=== PATIENT | female | born 1970 | race Caucasian/White ===

== ENCOUNTER 2018-10-06 07:44 | Observation (INO) ==
--- NOTE | 2018-09-23 15:43 | PAT Medication Instructions ---
Medication Instructions Date of Service September 23, 2018 Home Medications ibuprofen [Advil] 2 tab PO UD PRN multivitamin [Multiple Vitamins] 1 tab PO DAILY ASK your surgeon for instructions ibuprofen [Advil] 2 tab PO UD PRN DO NOT take the morning of surgery multivitamin [Multiple Vitamins] 1 tab PO DAILY Other Notes If you have any questions please call us at [phone] or [phone] or [phone] or [phone]
--- NOTE | 2018-09-24 12:02 | Anesthesiology Consultation ---
Date of Service September 24, 2018 Assessment & Plan (1) Encounter for pre-operative examination: - Check test AM DOS Chart Review Chart Review: Acceptable Risk for Surgery and Patient seen in Pre Admission Te sting Teaching & Discussion Pre-Anesthesia Teaching/Discussion Notes: Instructed NPO after midnight before surgery,except medications with 15 cc of water. Medication instructions provided according to the PAT guidelines. History Surgery Operation Date: 10/06/18 09:20 Proposed Procedures p Robotic Total Laparoscopic Hysterectomy - Rudy Castillo MD, FACOG Height/Weight Height: 5 ft 2 in Weight: 74.2 kg Allergies Allergy/AdvReac Type Severity Reaction Status Date / Time No Known Allergies Allergy Unverified 09/18/18 13:54 Medications Home Medications Medication Instructions Recorded Confirmed Last Taken ibuprofen [Advil] 2 tab PO UD PRN 09/18/18 09/18/18 Unknown multivitamin [Multiple Vitamins] 1 tab PO DAILY 09/18/18 09/18/18 Unknown Past Medical History Medical History Menorrhagia Ovarian cyst Past Family History Family History Grandmother Family history of breast cancer Other Family history of cervical cancer Past Surgical History Surgical History History of ankle surgery BONE SPUR RIGHT History of section History of laparoscopy [place] teeth removed Past Anesthesia History No Hx of Anesthesia Complications and No Family Hx of Anesthesia Complications History of PONV No Motion Sickness Screening History of Motion Sickness: No Social History Smoking Status: Never smoker Do You Dip or Chew Tobacco: No Hx Alcohol Use: Yes (RARE) Alcohol type: wine alcohol intake frequency: holidays/special occasions only Hx Substance Use: No substance use type: does not use Exercise / Class Metabolic Activity II 4-5 Yardwork/Stairs/Walk up hill Review of Systems Patient denies chest pain, shortness of breath, dyspnea on exertion, reflux, cough, wheezing, palpitations. Physical Exam Vital Signs VITALS BP 114/78 P 98 TEMP 98.5 SP02 97%RA RESP 16 PHYSICAL Full neck and c-spine range of motion. Full TMJ range of motion. TMD 4 finger breaths Mallampati Score 1 Dentition: intact Lungs: clear throughout to auscultation Cardiac: regular rate and rhythm, no murmurs noted Spine: normal Extremities: no edema Testing Laboratory Results 09/24/18 12:08 09/24/18 12:00 Blood Type A Positive 09/24/18 12:08 Antibody Screen NEGATIVE 09/24/18 12:08
[2018-09-24 12:39] LABS: Basophils # (auto) 0.04 K/uL (0-0.2); Basophils % (auto) 0.8 %; Eosinophils # (auto) 0.09 K/uL (0-0.5); Eosinophils % (auto) 1.8 %; Hematocrit (blood only) 37.6 % (37-47); Hemoglobin 12.8 g/dL (12.0-16.0); Lymphocytes # (auto) 2.02 K/uL (1.2-3.4); Lymphocytes % (auto) 40.9 %; Mean Corpuscular Volume 89.3 fL (80-100); Mean Platelet Volume 11.2 fL (7.4-10.4); Monocytes # (auto) 0.41 K/uL (0.11-0.59); Monocytes % (auto) 8.3 %; Neutrophils # (auto) 2.38 K/uL (1.4-6.5); Neutrophils % (auto) 48.2 %; Platelet Count 305 K/uL (130-400); RDW Coefficient of Variation 13.1 % (11.5-14.5); RDW Standard Deviation 42.5 fL (36.4-46.3); Red Blood Count 4.21 M/uL (4.2-5.4); White Blood Count 4.94 K/uL (4.8-10.8)
[2018-09-24 13:09] LABS: BUN Creatinine Ratio 13.7 (10-20); Calcium 9.2 mg/dl (8.5-10.1); Creatinine Clr Calc Pharmacy 85.4 ml/min; Est GFR (African American) 107.5; Est GFR (Non-African American) 92.8; Potassium 4.2 mmol/L (3.5-5.1)
[~2018-10-06 07:44] MED LIST: CEFAZOLIN 2000MG 2,000 MG/15 ML SYR IV SCH; LACTATED RINGER'S 1,000 ML IV SCH; LR 15ML/HR IV SCH
[2018-10-06] MEDS ORDERED: HYDROmorphone INJ 2 MG/ML SYR/VIAL IV PRN (08:23)
[2018-10-06] MEDS ORDERED: ATROPINE SULFATE 0.1 MG/ML 10ML SYR IV PRN (08:23)
[2018-10-06] MEDS ORDERED: ePHEDrine sulfate 50 MG/ML AMP IV PRN (08:23)
[2018-10-06] MEDS ORDERED: fentaNYL citrate 100 MCG/2 ML VIAL IV PRN (08:23)
[2018-10-06] MEDS ORDERED: PROMETHAZINE HCL 6.25 MG in SODIUM CHLORIDE 0.9% 50 ML IV PRN (08:23)
[2018-10-06] MEDS ORDERED: ONDANSETRON INJ 2 MG/ML 2 ML VIAL IV PRN ×2 (08:23→11:37)
[2018-10-06] MEDS ORDERED: LIDOCAINE HCL 2% 2 ML VIAL/AMP(20MG/ML) INFIL ONE (08:29)
[2018-10-06] MEDS ORDERED: DEXAMETHASONE SOD INJ 4 MG/ML VIAL ONE (08:29)
[2018-10-06] MEDS ORDERED: PROPOFOL IV EMULSION 10 MG/ML 20 ML VIAL IV ONE (08:29)
[2018-10-06] MEDS ORDERED: fentaNYL citrate 100 MCG/2 ML VIAL ONE (08:29)
[2018-10-06] MEDS ORDERED: ONDANSETRON INJ 2 MG/ML 2 ML VIAL ONE (08:29)
[2018-10-06] MEDS ORDERED: MIDAZOLAM HCL 1 MG/ML 2ML VIAL ONE (08:29)
--- NOTE | 2018-10-06 09:19 | History & Physical Bridge Note ---
Date of Service October 06, 2018 History & Physical Bridge Note I have examined the patient, reviewed the History & Physical and in the interval since the performance of the History & Physical I have noted the following changes of clinical significance: no changes noted
[2018-10-06] MEDS ORDERED: BUPIVACAINE 0.5 % 5 MG/1 ML MPF 30ML VIAL ONE (09:31)
[2018-10-06] MEDS ORDERED: HYDROmorphone INJ 2 MG/ML SYR/VIAL ONE (10:08)
[2018-10-06] MEDS ORDERED: LARYING-O-JET KIT (LTA) ONE (10:13)
[2018-10-06] MEDS ORDERED: TISSEEL FIBRIN SEALANT 4ML TOP ONE (10:47)
[2018-10-06] MEDS ORDERED: ROCURONIUM BROMIDE 10 MG/ML 5 ML VIAL ONE (10:54)
[2018-10-06] MEDS ORDERED: NEOSTIGMINE METHYLSULFATE 5 MG/5 ML SYR ONE (10:54)
[2018-10-06] MEDS ORDERED: METHYLENE BLUE 0.5% 10 ML VIAL ONE (10:54)
[2018-10-06] MEDS ORDERED: GLYCOPYRROLATE 0.2 MG/ML VIAL ONE (10:54)
[2018-10-06] MEDS ORDERED: KETOROLAC 30 MG/ML VIAL ONE (11:29)
[2018-10-06] MEDS ORDERED: IBUPROFEN 600 MG TAB PO PRN (11:37)
[2018-10-06] MEDS ORDERED: OXYCODONE/ACETAMINOPHEN 5mg/325mg TAB PO PRN ×2 (11:37)
[2018-10-06] MEDS ORDERED: BISACODYL 10 MG SUPP PR PRN (11:37)
[2018-10-06] MEDS ORDERED: ACETAMINOPHEN 325 MG TAB PO PRN (11:37)
[2018-10-06] MEDS ORDERED: SIMETHICONE 80 MG CHEW PO PRN (11:37)
[2018-10-06] MEDS ORDERED: PROMETHAZINE HCL 12.5 MG in SODIUM CHLORIDE 0.9% 50 ML IV PRN (11:37)
[2018-10-06] MEDS ORDERED: MAGNESIUM HYDROXIDE SUSP 30 ML UDC PO PRN (11:37)
[2018-10-06] MEDS ORDERED: KETOROLAC 30 MG/ML VIAL IV PRN (11:37)
[2018-10-06] MEDS ORDERED: ZOLPIDEM TARTRATE 5 MG TAB PO PRN (11:37)
[2018-10-06] MEDS ORDERED: PROMETHAZINE HCL 25 MG in SODIUM CHLORIDE 0.9% 50 ML IV PRN (11:37)
[2018-10-06] MEDS ORDERED: MEPERIDINE HCL 50 MG/ML CARP IV PRN (11:37)
[2018-10-06] MEDS ORDERED: LACTATED RINGER'S 1,000 ML IV SCH (11:45)
--- NOTE | 2018-10-06 11:50 | Operative Report ---
Post Operative Report Pre & Post Diagnosis Operation Date: 10/06/18 09:50 Pre-Op Diagnosis: Menorrhagia and ovarian cyst Post-Op Diagnosis: Menorrhagia and ovarian cyst Procedure Operation Date: 10/06/18 09:50 Actual Procedures p Robotic Total Laparoscopic Hysterectomy with Bilateral Salpingo-oopherectomy and Cystoscopy(Not Applicable) - Rudy Castillo MD, FACOG Surgeon Rudy Castillo MD, FACOG [employer] none Estimated Blood Loss 30 Findings Consistent with Post-Op Diagnosis Specimens Uterus, tubes, ovaries, cervix Description of Procedure Dictating operative note patient given general anesthetic prepped and draped in dorsal lithotomy position in yellowfin stirrups IV antibiotics given preoperatively we entered the peritoneal cavity placed a blunt-tipped Hernandez trocar balloon inflated to stabilize the port CO2 gas used to insufflate the abdomen. Findings upper abdomen normal no sign of visceral organ injury deep Trendelenburg position obtained findings benign left. Tubal cyst simple normal adnexa some adhesions on the bladder flap due to prior no other significant adhesions. There is some small amount of endometriosis in the back wall of the uterus 2 robotic ports were placed one on the left one in the right left upper quadrant accessory port placed 11 mm blade less trocar robot was docked arm #1 was monopolar howard arm #2 bipolar [place] Procedure was begun by using the V care to manipulate the uterus we identified the ureter on the left side directly by making a small window into the peritone um and identified ureter peristalsing this was well away from the IP ligament I was able to isolate the IP ligament and then coagulated well away from the left ureter. IP ligament was then cut with monopolar howard this was proximal to her ovary we then released the ovary from its lateral attachments round ligament was coagulated and cut bladder flap was dissected away sharply and then left-sided uterine vessels were identified isolated and then coagulated the bipolar [place] we were well away from the left ureter at this time vessels were then cut a pair of the exact same process was repeated on the right side when both uterine vessels were blood supplies were controlled we were then able to make the colpotomy anteriorly and then continue it to remove the uterus. Uterus was left in the vagina to maintain pneumoperitoneum. 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 IV methylene blue given by anesthesia 12 inch 2 oh 90-day V lock suture was then placed to the accessory port cuff was closed from left to right back right to left we ensured at least 1 cm full-thickness bites of vaginal Koza suture was cut to there was no tail needle removed for the excess report after suctioning irrigation we then applied Tisseel to the pedicles hemostasis was excellent Cystoscopy was performed after removing the Lantigua catheter normal appearing l adder no sign of injury or 6 due to sutures or abnormalities good strong jets of bluish-green dye from the left and right ureter opening cystoscope removed new Lantigua catheter placed uterus to be removed from the vagina bleeding was minimal Gloves changed instruments removed from the abdomen robot undocked gas allowed to escape incisions injected with 0.5% Marcaine fascia closed carefully in the u mbilical and left upper quadrant port with 0 Vicryl 4 oh septic or Monocryl closures on the incision and Dermabond applied sponge and instrument counts correct urine was clearish at the end of the procedure impression I attest to the content of the Intraoperative Record and any orders documented therein. Any exceptions are noted below.
--- NOTE | 2018-10-06 12:25 | Anesthesiology Progress Note ---
Date of Service October 06, 2018 Anesthesia Post Procedure Vital Signs Vital Signs: Temp Pulse Pulse Resp BP Pulse Ox 10/06/18 12:15 77 20 124/84 100 10/06/18 12:05 65 13 132/88 100 10/06/18 11:55 57 L 12 125/80 100 10/06/18 11:49 36.6 C 70 16 149/70 H 99 10/06/18 08:30 36.7 C 82 18 118/76 98 Transfer of Care Handoff Completed per policy Notes Mental Status: alert / awake / arousable Patient Amnestic to Procedure: Yes Nausea / Vomiting: adequately controlled Pain: adequately controlled Airway Patency, RR, SpO2: stable & adequate BP & HR: stable & adequate Hydration State: stable & adequate Anesthetic Complications: no major complications apparent
[2018-10-06 16:07] VITALS: BP 113/75; TEMP 97.7; O2SAT 98
[2018-10-06 18:55] VITALS: PULSE 82
[2018-10-06] MEDS ORDERED: DOCUSATE SODIUM 100 MG CAP PO SCH (21:00)
--- NOTE | 2018-10-10 16:04 | Discharge Summary ---
Date of Service October 10, 2018 Patient had TLH and on same day met criteria for discharge. Ambulating well, minimal bleeding. Pain well-controlled, no ext pain Discharge instructions reviewed Admission Exam (Per Admitting) Constitutional WD/WN, vitals as above Discharge Data Procedures Performed Operation Date: 10/06/18 09:50 Actual Procedures p Robotic Total Laparoscopic Hysterectomy with Bilateral Salpingo-oopherectomy (Not Applicable) - Rudy Castillo MD, FACOG s Cystoscopy(Not Applicable) - Rudy Castillo MD, FACOG Hospital Course (1) Menorrhagia:
== END 2018-10-06 19:25 | disposition home or self-care (01) ==
LOC: ASU 07:44 → 4N 07:44